=== PATIENT | male | born 1975 | race Caucasian/White ===

== ENCOUNTER 2018-11-09 13:46 | Emergency (ER) | payer SELFPAY ==
--- NOTE | 2018-11-09 15:25 | ED ---
Allergic Reaction/Systemic - HPI Summary HPI Summary: Pt. is a 43 y.o male who presents to the ER for allergic reaction. Patient works in the kitchen at [employer] and states today he was eating oatmeal when a few hours later he" abdominal pain and vomited. Pt. states after that his coworker noticed he had mild swelling to his upper lip and a little redness on his face. Pt. noted mild rash and itching to bilateral arms. Pt. states since his symptoms have almost resolved. He denies mouth swelling, difficulty swallowing, SOB. Pt. states he has an allergy to walnuts and notes he was working with chicken salad today that does have walnuts in it but pt. states he was wearing gloves. Pt. states he has never had an anaphylactic rxn and has never used an epipen. Sxs are mild in severity. No modifying factors. - History of Current Complaint Chief Complaint: EDAllergicReaction Time Seen by Provider: 11/09/18 14:56 Hx Obtained From: Patient Pain Intensity: 0 - Allergies/Home Medications Allergies/Adverse Reactions: Allergies Allergy/AdvReac Type Severity Reaction Status Date / Time walnut Allergy Swelling Verified 11/09/18 13:51 PMH/Surg Hx/FS Hx/Imm Hx Previously Healthy: Yes Infectious Disease History: No Infectious Disease History: Denies: Traveled Outside the [place] in Last 30 Days - Family History Known Family History: Positive: Non-Contributory - Social History Occupation: Employed Full-time Lives: With Family Review of Systems Constitutional: Negative ENT: Negative Cardiovascular: Negative Respiratory: Negative Positive: Rash All Other Systems Reviewed And Are Negative: Yes Physical Exam Triage Information Reviewed: Yes Vital Signs On Initial Exam: Initial Vitals Temp Pulse Resp BP Pulse Ox 99 F 95 16 158/78 96 11/09/18 13:51 11/09/18 13:51 11/09/18 13:51 11/09/18 13:51 11/09/18 13:51 Vital Signs Reviewed: Yes Appearance: Positive: Well-Appearing - Pt. sitting on bed in NAD. Talkative and pleasant. Skin: Positive: Warm, Dry, Other - faint erythema over bilateral AC regions. No urticaria. Eyes: Positive: Normal, EOMI ENT: Positive: Pharynx normal, Other - No face, lips or tongue edema.. Negative : Trismus, Muffled voice Neck: Positive: Supple Respiratory/Lung Sounds: Positive: Clear to Auscultation, Breath Sounds Present. Negative: Wheezes Cardiovascular: Positive: Normal, RRR Musculoskeletal: Positive: Normal, Strength/ROM Intact Neurological: Positive: Normal, CN Intact II-III Psychiatric: Positive: Affect/Mood Appropriate Diagnostics - Vital Signs Vital Signs Temp Pulse Resp BP Pulse Ox 11/09/18 13:51 99 F 95 16 158/78 96 - Laboratory Lab Statement: Any lab studies that have been ordered have been reviewed, and results considered in the medical decision making process. Allergic Reaction Course/Dx - Course Course Of Treatment: Patient presenting with possible mild allergic reaction to oatmeal or walnuts? Patient's symptoms have almost all resolved since being in the ER. He has no evidence of anaphylactic reaction. Discussed treatment with Benadryl but patient declines because he does not want to be drowsy. We'll give a dose of Claritin. Patient follow-up with the [facility] if needed. Return to the ER immediately if symptoms return or worsen. Patient understands and agrees with plan. - Diagnoses Differential Diagnosis/HQI/PQRI: Positive: Anaphylaxis, Angioedema, Bronchospasm , Local Allergic Reaction Provider Diagnoses: Food allergy Discharge ED - Sign-Out/Discharge Documenting (check all that apply): Patient Departure Patient Received Moderate/Deep Sedation with Procedure: No - Discharge Plan Condition: Improved Disposition: HOME Patient Education Materials: Food Allergy (ED) Referrals: [facility] [Outside] Additional Instructions: Follow up with the [facility] Take benadryl as directed if symptoms persist Return to ER if symptoms change or worsen - Billing Disposition and Condition Condition: IMPROVED Disposition: Home
[2018-11-09 15:59] VITALS: BP 117/72
[2018-11-09] MEDS ORDERED: Cetirizine* 10 MG TAB PO SCH (16:00)
== END 2018-11-09 15:58 | disposition home or self-care (01) ==
LOC: ED 13:46
DX: T78.1XXA Other adverse food reactions, not elsewhere classified, initial encounter (principal); X58.XXXA Exposure to other specified factors, initial encounter; Y92.9 Unspecified place or not applicable
CPT/HCPCS: 99282; A9270-GY